=== PATIENT | female | born 1965 | race American Indian/Alaskan Native ===

== ENCOUNTER 2018-07-30 12:01 | Observation (INO) | payer MEDICAID, OTHER ==
[2018-07-30 12:15] VITALS: BMI 24.3
--- NOTE | 2018-07-30 13:15 | C.PDOC ---
History Of Present Illness 53 year old female presents to ED with complaint of new onset right-sided and left facial paresthesia for the past 3 days. Patient states that she felt sudden onset numbness to the right upper extremity and right lower extremity and involuntary "twisting" of the hands and feet. Patient now has residual right fingertip paresthesia. Patient also complaint of associated left facial numbness" heaviness" and swelling to the left upper face. The swelling is now resolved, but patient still has an odd feeling to her left face. Patient had no prior history of TIA, DM, and CAD. Patient denies weakness, SOB, and difficulty swallowing. NEW ONSET R SIDED AND L FACIAL PARESTHESIA X 3 DAYS. PS FELT SUDDENT ONSET NUMBNESS RUE/RLE, INVOLUNTARY "TWISTING" OF HANDS AND FEET. NOW W RESIDUAL R FINGERTIP PARESTHESIA. NO WEAKNESS. +ASSOC L FACIAL NUMBNESS "HEAVINESS", +SWELLING L UPPER FACE. SWELLING NOW RESOLVED STILL W "ODD FEELING" L FACE. NO PRIOR HO TIA, DM, CAD. EXAM NONTOXIC NARD CV RRR EXT AROM WO DIFF ATRAUM NEURO SEE NIH REMAINDER NEG Time Seen by Provider: 07/30/18 12:36 Chief Complaint (Nursing): Weakness/Neurological Deficit History Per: Patient History/Exam Limitations: no limitations Onset/Duration Of Symptoms: Days (3), Sudden Onset Current Symptoms Are (Timing): Still Present Past Medical History Reviewed: Historical Data, Nursing Documentation, Vital Signs Vital Signs: Last Vital Signs Temp 99.4 F 07/30/18 12:15 Pulse 73 07/30/18 12:15 Resp 17 07/30/18 12:15 BP 146/89 07/30/18 12:15 Pulse Ox 100 07/30/18 12:15 - Medical History PMH: Asthma Denies: CAD, Diabetes, TIA Surgical History: No Surg Hx Family History: States: Unknown Family Hx - Social History Hx Tobacco Use: No Hx Alcohol Use: Yes Hx Substance Use: No - Immunization History Hx Tetanus Toxoid Vaccination: No Hx Influenza Vaccination: Yes (2018) Hx Pneumococcal Vaccination: No Review Of Systems Constitutional: Negative for: Weakness ENT: Positive for: Other (swelling to the left upper facial area) Respiratory: Negative for: Shortness of Breath, Other (difficulty swallowing) Neurological: Positive for: Numbness (right fingertip, left facial area ). Negative for: Weakness Physical Exam - Physical Exam Appears: Non-toxic, No Acute Distress Skin: Normal Color, Warm, Dry Head: Atraumatic, Normacephalic Neck: Normal ROM, Supple Chest: Symmetrical, No Deformity Cardiovascular: Rhythm Regular, No Murmur Respiratory: No Accessory Muscle Use, No Rales, No Rhonchi, No Wheezing, Other (NARD) Extremity: Capillary Refill (<2 seconds), Other (AROM with out difficulty) Extremity: Bilateral: Atraumatic Neurological/Psych: Oriented x3, Normal Speech, Normal Cognition, No Normal Sensation (mild to moderate loss of sensation) ED Course And Treatment - Laboratory Results Result Diagrams: 07/30/18 13:21 07/30/18 13:21 O2 Sat by Pulse Oximetry: 100 (in RA) - Other Rad CXR X-Ray: Interpreted by Me, Viewed By Me Interpretation: IMPRESSION: No active disease. - CT Scan/US Head CT Other Rad Studies (CT/US): Interpreted By Me, Read By Radiologist CT/US Interpretation: IMPRESSION: No acute intracranial pathology identified. Progress Note: Head CT, CXR, and EKG ordered for patient. Labs ordered with CMP, CBC, and troponin. Patient given IV fluids. Reevaluation Time: 14:52 Reassessment Condition: Unchanged (NO NEW NEURO SX EXAM UNCH INITIAL.) - Physician Consult Information Time Consulting Physician Contacted: 14:53 Physician Contacted: Bonnie Winter Outcome Of Conversation: MED CALL WILL ADMIT NIHSS Stroke Scale - Date/Time Evaluation Performed Date Performed: 07/30/18 Time Performed: 13:15 When Was NIHSS Performed: Baseline - How Severe is the Stroke Level of Consciousness: 0=Alert LOC to Questions: 0=Both comments correct LOC to commands: 0=Obeys both correctly Best Gaze: 0=Normal Visual: 0=No visual loss Facial: 0=Normal Motor Arm - Left: 0=No drift Motor Arm - Right: 0=No drift Motor Leg - Left: 0=No drift Motor Leg - Right: 0=No drift Limb Ataxia: 0=Absent Sensory: 1=Mild to moderate loss Best Language: 0=No aphasia Dysarthia: 0=Normal articulation Extinction & Inattention (Neglect): 0=Normal, no object Score: 1 rTPA Inclusion/Exclusion - Refusal of Treatment Patient Refused Treatment: No - Inclusion Criteria for Altepase All of the below criteria for inclusion were reviewed: Yes Patient is 18 years or Older: Yes The Clinical Diagnosis of Ischemic Stroke That is Causing a Potentially Disabling Neurological Deficit: Yes Time of Onset is Well Established to be Less Than 270 Minute Before Treatment Would Begin: Yes Risk/Benefit Discussed With Patient/Family Member Present: Yes - Exclusion Criteria for Altepase Current Intracranial Hemorrhage: No Subarachnoid hemorrhage: No Active Internal Bleeding: No Recent (within 3 months) Intracranial or Intraspinal Surgery: No Presence of intracranial conditions that may increase the risk of bleeding: Not Applicable Bleeding Diathesis Including but not limited to: Not Applicable Current Severe Uncontrolled Hypertension: No - Warning to TPA With Conditions Following Conditions Weighed Against Anticipated Benefit: No Disposition Counseled Patient/Family Regarding: Studies Performed, Diagnosis - Disposition Disposition: HOSPITALIZED Disposition Time: 14:53 Condition: STABLE Forms: [facility] (Tristanian) - POA Present On Arrival: None - Clinical Impression Clinical Impression: TIA (transient ischemic attack) - Scribe Statement The provider has reviewed the documentation as recorded by the Scribe (Kerrie Montelongo) All medical record entries made by the Scribe were at my direction and personally dictated by me. I have reviewed the chart and agree that the record accurately reflects my personal performance of the history, physical exam, medical decision making, and the department course for this patient. I have also personally directed, reviewed, and agree with the discharge instructions and disposition.
[2018-07-30 13:37] LABS: BASO % 0.7 % (0.0-2.0); EOS # 0.1 K/uL (0.0-0.7); EOS % 1.4 % (0.0-4.0); HEMOGLOBIN 14.6 g/dL (11.0-16.0); LYMPH # 2.6 K/uL (1.0-4.3); LYMPH % 41.5 % (20.0-40.0); MEAN CELL VOLUME 95.5 fL (81.0-99.0); MEAN CORPUSCULAR HEMOGLOBIN 32.9 pg (27.0-31.0); MEAN CORPUSCULAR HGB CONC 34.4 g/dL (33.0-37.0); MEAN PLATELET VOLUME 10.3 fL (7.2-11.7); MONO # 0.8 K/uL (0.0-0.8); MONO % 11.9 % (0.0-10.0); NEUT # 2.8 K/uL (1.8-7.0); NEUT % 44.5 % (50.0-75.0); NRBC % 0.2 % (0.0-2.0); RBC 4.43 Mil/uL (3.80-5.20); RED CELL DISTRIBUTION WIDTH 13.9 % (11.5-14.5); WHITE BLOOD COUNT 6.3 K/uL (4.8-10.8)
[2018-07-30 13:40] LABS: PROTHROMBIN TIME 10.7 SECONDS (9.7-12.2)
--- NOTE | 2018-07-30 13:50 | CT ---
Date of service: 07/30/2018 PROCEDURE: CT HEAD WITHOUT CONTRAST. HISTORY: R SIDED PARESTHESIA, L FACIAL NUMB COMPARISON: CT without IV contrast performed 09/16/11 TECHNIQUE: Axial computed tomography images were obtained through the head/brain without intravenous contrast. Radiation dose: Total exam DLP = 984.96 mGy-cm. This CT exam was performed using one or more of the following dose reduction techniques: Automated exposure control, adjustment of the mA and/or kV according to patient size, and/or use of iterative reconstruction technique. FINDINGS: Streak artifact obscures the skull base. HEMORRHAGE: No intracranial hemorrhage. BRAIN: No mass effect or edema. The haider-white matter differentiation appears intact. Please note that MRI with diffusion imaging is more sensitive in the detection of acute ischemic event. VENTRICLES: No hydrocephalus. CALVARIUM: Unremarkable. PARANASAL SINUSES: Unremarkable as visualized. No significant inflammatory changes. MASTOID AIR CELLS: Unremarkable as visualized. No inflammatory changes. OTHER FINDINGS: None. IMPRESSION: No acute intracranial pathology identified.
[2018-07-30 13:54] LABS: ALB/GLOB RATIO 1.7 (1.0-2.1); ALBUMIN 4.6 g/dL (3.5-5.0); BLOOD UREA NITROGEN 11 mg/dL (7-17); CALCIUM 9.7 mg/dl (8.6-10.4); GFR NON-AFRICAN AMERICAN 58
[2018-07-30 13:55] LABS: ALT/SGPT 20 U/L (9-52); AST/SGOT 43 U/L (14-36)
[2018-07-30 14:04] LABS: HDL CHOLESTEROL 115 mg/dL (30-70)
[2018-07-30 14:05] LABS: LDL CHOLESTEROL 70 mg/dL (0-129)
--- NOTE | 2018-07-30 14:25 | RAD ---
Date of service: 07/30/2018 HISTORY: PARESTHESIA COMPARISON: No prior. TECHNIQUE: 1 view obtained. FINDINGS: LUNGS: No active pulmonary disease. PLEURA: No significant pleural effusion identified, no pneumothorax apparent. CARDIOVASCULAR: No aortic atherosclerotic calcification present. Normal cardiac size. No pulmonary vascular congestion. OSSEOUS STRUCTURES: No significant abnormalities. VISUALIZED UPPER ABDOMEN: Normal. OTHER FINDINGS: None. IMPRESSION: No active disease.
--- NOTE | 2018-07-30 17:54 | CP.PCM.CON ---
History of Present Illness - History of Present Illness History of Present Illness: Neurology Consultation Note: Consult requested by Dr. Winter The patient is a 53-year-old woman with a past medical history of asthma who presented to the ED today after several events that started about 3 days ago. She was on vacation with her when she noticed that her right side was "twisting" and she then developed speech difficulty and lost consciousness. While unconscious, her noted right side contractions. When she regained consciousness, she was confused and staring around. She had another similar episode 3 days later. She continues to feel that her right side is different and has a sensation of dizziness. CT scan of the head did not show any acute findings. The patient had a brother who of brain tumors and has a family history of seizures as well. She has never had a seizure before. Review of Systems - Constitutional Constitutional: As Per HPI - EENT Eyes: absent: As Per HPI, Blind Spots, Blurred Vision, Change in Vision, Decreased Night Vision, Diplopia, Discharge, Dry Eye, Exophthalmos, Floaters, Irritation, Itchy Eyes, Loss of Peripheral Vision, Pain, Photophobia, Requires Corrective Lenses, Sees Flashes, Spots in Vision, Tunnel Vision, Other Visual Disturbances, Loss of Vision, Other Ears: absent: As Per HPI, Decreased Hearing, Ear Discharge, Ear Pain, Tinnitus, Abnormal Hearing, Disequilibrium, Dizziness, Other Nose/Mouth/Throat: absent: As Per HPI, Epistaxis, Nasal Congestion, Nasal Discharge, Nasal Obstruction, Nasal Trauma, Nose Pain, Post Nasal Drip, Sinus Pain, Sinus Pressure, Bleeding Gums, Change in Voice, Dental Pain, Dry Mouth, Dysphagia, Halitosis, Hoarsness, Lip Swelling, Mouth Lesions, Mouth Pain, Odynophagia, Sore Throat, Throat Swelling, Tongue Swelling, Facial Pain, Neck Pain, Neck Mass, Other - Cardiovascular Cardiovascular: absent: As Per HPI, Acrocyanosis, Chest Pain, Chest Pain at Rest, Chest Pain with Activity, Claudication, Diaphoresis, Dyspnea, Dyspnea on Exertion, Edema, Irregular Heart Rhythm, Pain Radiating to Arm/Neck/Jaw, Leg Edema, Leg Ulcers, Lightheadedness, Orthopnea, Palpitations, Paroxysmal Nocturnal Dyspnea, Pedal Edema, Radiating Pain, Rapid Heart Rate, Slow Heart Rate, Syncope, Other - Respiratory Respiratory: As Per HPI - Gastrointestinal Gastrointestinal: absent: As Per HPI, Abdominal Pain, Belching, Bloating, Change in Bowel Habits, Change in Stool Character, Coffee Ground Emesis, Constipation, Cramping, Diarrhea, Dyspepsia, Dysphagia, Early Satiety, Excessive Flatus, Fecal Incontinence, Heartburn, Hematemesis, Hematochezia, Loose Stools, Melena, Nausea, Odynophagia, Temesmus, Vomiting, Other - Genitourinary Genitourinary: absent: As Per HPI, Change in Urinary Stream, Difficulty Urinating, Dysuria, Flank Pain, Hematuria, Pyuria, Nocturia, Urinary Incontinence, Urinary Frequency, Urinary Hesitance, Urinary Urgency, Voiding Freq/Small Amts, Freq UTI, Hx Renal/Bladder Calculi, Hx /Renal Surgery, Bladder Distension, Other - Musculoskeletal Musculoskeletal: absent: As Per HPI, Abnormal Gait, Arthralgias, Atrophy, Back Pain, Deformity, Joint Swelling, Limited Range of Motion, Loss of Height, Muscle Cramps, Muscle Weakness, Myalgias, Neck Pain, Numbness, Radiating Pain into Limb, Stiffness, Tingling, Other - Integumentary Integumentary: absent: As Per HPI, Acne, Alopecia, Bleeding Lesions, Change in Hair, Change in Nails, Change in Pigmentation, Changing Lesions, Dry Skin, Erythema, Furuncle, Hirsutism, Lesions, New Lesions, Non-Healing Lesions, Photosensitivity, Pruritus, Rash, Skin Pain, Skin Ulcer, Sores, Striae, Swelling, Unusual Bruising, Wounds, Jaundice, Other - Neurological Neurological: As Per HPI - Psychiatric Psychiatric: absent: As Per HPI, Abnormal Sleep Pattern, Anhedonia, Anxiety, Auditory Hallucinations, Behavioral Changes, Change in Appetite, Change in Libido, Confusion, Depression, Difficulty Concentrating, Hallucinations, Homicidal Ideation, Hopelessness, Irritability, Memory Loss, Mood Swings, Panic Attacks, Paranoia, Suicidal Ideation, Visual Hallucinations, Tactile Hallucinations, Other - Endocrine Endocrine: absent: As Per HPI, Change in Body Appearance, Change in Libido, Cold Intolorance, Deepening of Voice, Excessive Sweating, Fatigue, Flushing, Heat Intolorance, Increase in Ring/Shoe/Hat Size, Palpitations, Polydipsia, Polyphagia, Polyuria, Other - Hematologic/Lymphatic Hematologic: absent: As Per HPI, Easy Bleeding, Easy Bruising, Lymphadenopathy, Other Past Patient History - Past Social History Smoking Status: Light Smoker < 10 Cigarettes Daily - PULMONARY Hx Asthma: Yes - NEUROLOGICAL Hx Transient Ischemic Attacks (TIA): No - PSYCHIATRIC Hx Substance Use: No - SURGICAL HISTORY Hx Surgeries: Yes Other/Comment: RIGHT OVARIAN CYST REMOVAL Meds Allergies/Adverse Reactions: Allergies Allergy/AdvReac Type Severity Reaction Status Date / Time No Known Allergies Allergy Verified 07/30/18 12:10 - Medications Medications: Current Medications Aspirin (Aspirin) 325 mg PO DAILY RHIANNON Sodium Chloride (Sodium Chloride 0.9%) 1,000 mls @ 100 mls/hr IV .Q10H RHIANNON Rosuvastatin Calcium (Crestor) 10 mg PO HS RHIANNON Physical Exam - Constitutional Appears: Well - Head Exam Head Exam: ATRAUMATIC, NORMAL INSPECTION, NORMOCEPHALIC - Eye Exam Eye Exam: EOMI, Normal appearance, PERRL Pupil Exam: NORMAL ACCOMODATION, PERRL - ENT Exam ENT Exam: Mucous Membranes Moist, Normal Exam - Neck Exam Neck exam: Positive for: Normal Inspection - Respiratory Exam Respiratory Exam: Clear to Auscultation Bilateral, NORMAL BREATHING PATTERN - Cardiovascular Exam Cardiovascular Exam: REGULAR RHYTHM, +S1, +S2 - GI/Abdominal Exam GI & Abdominal Exam: Normal Bowel Sounds, Soft. absent: Tenderness - Extremities Exam Extremities exam: Positive for: normal inspection - Back Exam Back exam: NORMAL INSPECTION - Neurological Exam Neurological exam: Alert, CN II-XII Intact, Normal Gait, Oriented x3, Reflexes Normal Additional comments: Decreased sensation of right arm and leg compared with left. There is also decreased coordination and fine motor movements on the right side. - Psychiatric Exam Psychiatric exam: Normal Affect, Normal Mood - Skin Skin Exam: Dry, Intact, Normal Color, Warm Results - Vital Signs Recent Vital Signs: Last Vital Signs Temp 99.4 F 07/30/18 12:15 Pulse 71 07/30/18 15:55 Resp 16 07/30/18 15:55 BP 149/73 07/30/18 15:55 Pulse Ox 97 07/30/18 15:55 - Labs Result Diagrams: 07/30/18 13:21 07/30/18 13:21 Labs: Laboratory Results - last 24 hr 07/30/18 07/30/18 07/30/18 12:18 13:21 13:21 WBC 6.3 RBC 4.43 Hgb 14.6 Hct 42.4 MCV 95.5 MCH 32.9 H MCHC 34.4 RDW 13.9 Plt Count 216 MPV 10.3 Neut % (Auto) 44.5 L Lymph % (Auto) 41.5 H [place] % (Auto) 11.9 H Eos % (Auto) 1.4 Baso % (Auto) 0.7 Neut # (Auto) 2.8 Lymph # (Auto) 2.6 [place] # (Auto) 0.8 Eos # (Auto) 0.1 Baso # (Auto) 0.0 PT 10.7 INR 1.0 APTT 29 Sodium Potassium Chloride Carbon Dioxide Anion Gap BUN Creatinine Est GFR ( Amer) Est GFR (Non-Af Amer) POC Glucose (mg/dL) 112 H Random Glucose Hemoglobin A1c Calcium Total Bilirubin AST ALT Alkaline Phosphatase Troponin I Total Protein Albumin Globulin Albumin/Globulin Ratio Triglycerides Cholesterol LDL Cholesterol Direct HDL Cholesterol 07/30/18 07/30/18 13:21 13:21 WBC RBC Hgb Hct MCV MCH MCHC RDW Plt Count MPV Neut % (Auto) Lymph % (Auto) [place] % (Auto) Eos % (Auto) Baso % (Auto) Neut # (Auto) Lymph # (Auto) [place] # (Auto) Eos # (Auto) Baso # (Auto) PT INR APTT Sodium 136 Potassium 3.6 Chloride 99 Carbon Dioxide 26 Anion Gap 14 BUN 11 Creatinine 1.0 Est GFR ( Amer) > 60 Est GFR (Non-Af Amer) 58 POC Glucose (mg/dL) Random Glucose 96 Hemoglobin A1c 5.3 Calcium 9.7 Total Bilirubin 1.0 AST 43 H ALT 20 Alkaline Phosphatase 75 Troponin I < 0.0120 Total Protein 7.4 Albumin 4.6 Globulin 2.7 Albumin/Globulin Ratio 1.7 Triglycerides 92 Cholesterol 186 LDL Cholesterol Direct 70 HDL Cholesterol 115 H Assessment & Plan (1) Seizure Assessment and Plan: The description of the events is most consistent with focal onset seizures that are secondarily generalized. I recommend the followin. MRI brain with and without contrast 2. EEG awake and drowsy for 1 hour 3. Echocardiogram 4. Start Keppra 500 mg BID 5. Check HbA1c, Lipid panel, B12, folate, TSH T3/T4, vitamin D levels 6. PT/OT eval and treatment if needed Thank you for this consultation. Status: Acute
[2018-07-30] MEDS: Sodium Chloride 0.9% 1,000 ML IV SCH ×2 (19:01→23:29)
--- NOTE | 2018-07-30 19:12 | CP.PCM.HP ---
Past Patient History - Past Social History Smoking Status: Light Smoker < 10 Cigarettes Daily - PULMONARY Hx Asthma: Yes - NEUROLOGICAL Hx Transient Ischemic Attacks (TIA): No - PSYCHIATRIC Hx Substance Use: No - SURGICAL HISTORY Hx Surgeries: Yes Other/Comment: RIGHT OVARIAN CYST REMOVAL Meds Allergies/Adverse Reactions: Allergies Allergy/AdvReac Type Severity Reaction Status Date / Time No Known Allergies Allergy Verified 07/30/18 12:10 Physical Exam - Constitutional Appears: Well - Head Exam Head Exam: ATRAUMATIC, NORMAL INSPECTION, NORMOCEPHALIC - Eye Exam Eye Exam: EOMI, Normal appearance, PERRL Pupil Exam: NORMAL ACCOMODATION, PERRL - ENT Exam ENT Exam: Mucous Membranes Moist, Normal Exam - Neck Exam Neck exam: Positive for: Normal Inspection - Respiratory Exam Respiratory Exam: Decreased Breath Sounds - Cardiovascular Exam Cardiovascular Exam: REGULAR RHYTHM, +S1, +S2 - GI/Abdominal Exam GI & Abdominal Exam: Diminished Bowel Sounds, Soft - Rectal Exam Rectal Exam: Deferred - Neurological Exam Neurological exam: Oriented x3 Results - Vital Signs Recent Vital Signs: Last Vital Signs Temp 99.4 F 07/30/18 12:15 Pulse 71 07/30/18 15:55 Resp 16 07/30/18 15:55 BP 149/73 07/30/18 15:55 Pulse Ox 97 07/30/18 15:55 - Labs Result Diagrams: 07/30/18 13:21 07/30/18 13:21 Labs: Laboratory Results - last 24 hr 07/30/18 07/30/18 07/30/18 12:18 13:21 13:21 WBC 6.3 RBC 4.43 Hgb 14.6 Hct 42.4 MCV 95.5 MCH 32.9 H MCHC 34.4 RDW 13.9 Plt Count 216 MPV 10.3 Neut % (Auto) 44.5 L Lymph % (Auto) 41.5 H [place] % (Auto) 11.9 H Eos % (Auto) 1.4 Baso % (Auto) 0.7 Neut # (Auto) 2.8 Lymph # (Auto) 2.6 [place] # (Auto) 0.8 Eos # (Auto) 0.1 Baso # (Auto) 0.0 PT 10.7 INR 1.0 APTT 29 Sodium Potassium Chloride Carbon Dioxide Anion Gap BUN Creatinine Est GFR ( Amer) Est GFR (Non-Af Amer) POC Glucose (mg/dL) 112 H Random Glucose Hemoglobin A1c Calcium Total Bilirubin AST ALT Alkaline Phosphatase Troponin I Total Protein Albumin Globulin Albumin/Globulin Ratio Triglycerides Cholesterol LDL Cholesterol Direct HDL Cholesterol 07/30/18 07/30/18 13:21 13:21 WBC RBC Hgb Hct MCV MCH MCHC RDW Plt Count MPV Neut % (Auto) Lymph % (Auto) [place] % (Auto) Eos % (Auto) Baso % (Auto) Neut # (Auto) Lymph # (Auto) [place] # (Auto) Eos # (Auto) Baso # (Auto) PT INR APTT Sodium 136 Potassium 3.6 Chloride 99 Carbon Dioxide 26 Anion Gap 14 BUN 11 Creatinine 1.0 Est GFR ( Amer) > 60 Est GFR (Non-Af Amer) 58 POC Glucose (mg/dL) Random Glucose 96 Hemoglobin A1c 5.3 Calcium 9.7 Total Bilirubin 1.0 AST 43 H ALT 20 Alkaline Phosphatase 75 Troponin I < 0.0120 Total Protein 7.4 Albumin 4.6 Globulin 2.7 Albumin/Globulin Ratio 1.7 Triglycerides 92 Cholesterol 186 LDL Cholesterol Direct 70 HDL Cholesterol 115 H
[2018-07-30 20:56] LABS: BARBITURATES, UR NEGATIVE (NEGATIVE); BENZODIAZEPINES, UR NEGATIVE (NEGATIVE); OPIATES, UR NEGATIVE (NEGATIVE); PHENCYCLIDINE, UR NEGATIVE (NEGATIVE)
[2018-07-30 23:45] LABS: CK-MB 0.48 ng/mL (0.0-3.38)
[2018-07-31 05:00] LABS: HDL CHOLESTEROL 82 mg/dL (30-70)
[2018-07-31 05:11] LABS: LDL CHOLESTEROL 63 mg/dL (0-129)
[2018-07-31] MEDS: Sodium Chloride 0.9% 1,000 ML IV SCH ×3 (05:23→21:21)
[2018-07-31 06:06] LABS: FOLATE 8.1 ng/mL
--- NOTE | 2018-07-31 07:54 | CON ---
DATE: 07/30/2018 REASON FOR CONSULTATION: Right-sided weakness and numbness as well as dizziness and weakness. HISTORY OF PRESENT ILLNESS: The patient is a 53-year-old female who has no significant past medical history who experienced slurred speech on Monday while she was on a vacation, right-sided arm and leg weakness with numbness as well as loss of her speech according to her who noticed that. The patient did not seek any medical attention. 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 The patient denies any recent head trauma or neck injury and is unaware of any history of stroke in the past. The patient denies any saliva drooling from her mouth. She does report left facial tightness. The patient did recover most of the power in the right upper and lower extremities with residual weakness as well as numbness. SOCIAL HISTORY: The patient is a smoker. Occasional drinker. She is . 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 MEDICATIONS: Aspirin 325 mg once a day, Crestor 10 mg once a day, Keppra 500 mg twice a day, normal saline at 100 mL/hour. REVIEW OF SYSTEMS: No nausea or vomiting. No fever or chills. PHYSICAL EXAMINATION: GENERAL: The patient is a middle-aged female who does not appear to be in any distress. VITAL SIGNS: Blood pressure 146/82, heart rate 60, temperature 98.5, respirations 20. HEENT: Normocephalic. CHEST: Clear. HEART: S1 and S2, regular. EXTREMITIES: No edema. NEUROLOGIC: Reveals weakness of the right handgrip. LABORATORY DATA: SMA-7 is entirely within normal limit. One set of troponin is negative. PT, PTT, INR are within normal limit. Today's hemoglobin, hematocrit, white count, and platelet count are within normal limit. Head CT scan without contrast, no acute intracranial pathology. EKG revealed sinus rhythm with sinus arrhythmia and short MA interval. ASSESSMENT: 1. Recurrent transient ischemic attack. 2. Rule out seizure activity. RECOMMENDATIONS: Continue aspirin at 325 mg once a day, Crestor 10 mg once a day, Keppra 500 mg twice a day. Obtain urine for drug screen, carotid Doppler, and an echocardiogram. Juan Saul MD
[2018-07-31] MEDS ORDERED: Pneumococcal 23-Valent Vaccine IM ONE (10:00)
[2018-07-31] MEDS ORDERED: Gadodiamide 287 mg/ml 20 ml IV ONE (12:21)
--- NOTE | 2018-07-31 13:38 | MRI ---
Date of service: 07/31/2018 PROCEDURE: MRI BRAIN WITH AND WITHOUT CONTRAST HISTORY: Seizure COMPARISON: Comparison made with CT scan the brain 07/30/2018. TECHNIQUE: Multiplanar, multisequence MR images of the brain were obtained with and without intravenous contrast enhancement. 12 cc of Omniscan contrast material injected for this examination. FINDINGS: HEMORRHAGE: None DWI: No evidence of an acute or early subacute infarction seen on diffusion imaging. BRAIN PARENCHYMA: There are no focal areas of abnormal signal.. No evidence to suggest mesial temporal sclerosis. No mass, mass effect or edema. No atrophy or chronic microvascular ischemic changes. ENHANCEMENT: No abnormal focal areas no focal areas of abnormal signal. No evidence of unusual meningeal enhancement. VENTRICLES: No obstructive hydrocephalus. CRANIUM: Unremarkable. ORBITS: Grossly unremarkable. PARANASAL SINUSES/MASTOIDS: Minimal mucosal thickening left chamber sphenoid sinus VASCULAR SYSTEM: Visualized major vascular flow voids at skull base patent. OTHER FINDINGS: None . IMPRESSION: No evidence of acute intracranial hemorrhage or infarction. No focal areas of abnormal signal. No evidence to suggest mesial temporal sclerosis. There are no enhancing lesions. No evidence of unusual meningeal enhancement.
[2018-07-31 14:32] LABS: CK-MB 0.39 ng/mL (0.0-3.38)
--- NOTE | 2018-07-31 16:21 | CP.PCM.PN ---
Subjective - Date & Time of Evaluation Date of Evaluation: 07/31/18 Time of Evaluation: 16:23 - Subjective Subjective: Neuro Follow-Up: Mrs. Emerson Dobbins was evaluated this afternoon with at bedside. She complains of feeling unsteady and unbalanced, especially while ambulating or with sudden movements. 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 Otherwise, she denies h/a, visual changes to the right eye, difficulty speaking, chest pain, palpitations, sob, cough, abd pain, n/v/d, fever/chills, rashes. Objective - Vital Signs/Intake and Output Vital Signs (last 24 hours): Temp Pulse Resp BP Pulse Ox 98.1 F 69 20 129/85 98 07/31/18 07:00 07/31/18 12:37 07/31/18 07:00 07/31/18 07:00 07/31/18 07:00 Intake and Output: 07/31/18 07/31/18 06:59 18:59 Intake Total 1500 Balance 1500 - Medications Medications: Current Medications Aspirin (Aspirin) 325 mg PO DAILY [facility] Last Admin: 07/31/18 09:25 Dose: 325 mg Sodium Chloride (Sodium Chloride 0.9%) 1,000 mls @ 100 mls/hr IV .Q10H [facility] Last Admin: 07/31/18 09:15 Dose: Not Given Levetiracetam (Keppra) 500 mg PO BID [facility] Last Admin: 07/31/18 09:25 Dose: 500 mg Rosuvastatin Calcium (Crestor) 10 mg PO HS [facility] Last Admin: 07/30/18 22:46 Dose: 10 mg - Labs Labs: 07/30/18 13:21 07/30/18 13:21 PT 10.7 SECONDS (9.7-12.2) 07/30/18 13:21 INR 1.0 07/30/18 13:21 APTT 29 SECONDS (21-34) 07/30/18 13:21 - Constitutional Appears: Well, Non-toxic, No Acute Distress - Head Exam Head Exam: ATRAUMATIC, NORMAL INSPECTION, NORMOCEPHALIC - Eye Exam Eye Exam: EOMI, Normal appearance Pupil Exam: NORMAL ACCOMODATION, PERRL - ENT Exam ENT Exam: Mucous Membranes Moist, Normal Exam - Neck Exam Neck Exam: Full ROM, Normal Inspection - Respiratory Exam Respiratory Exam: NORMAL BREATHING PATTERN - Extremities Exam Extremities Exam: Full ROM, Normal Inspection. absent: Calf Tenderness, Pedal Edema - Back Exam Back Exam: Full ROM - Neurological Exam Neurological Exam: Alert, Awake, CN II-XII Intact, Oriented x3, Reflexes Normal Neuro motor strength exam: Left Upper Extremity: 5 (distal 5/5), Right Upper E xtremity: 5 (distal 5/5), Left Lower Extremity: 5 (distal 5/5), Right Lower Extremity: 5 (distal 5/5) Additional comments: Speech clear, no dysarthria. No diplopia on eye exam though pt states left eye is blurry. FROM to all extremities with no focal weakness/deficits. No dysmetria or ataxia. No sensory deficits noted to face and extremities b/l. No tremors or abnormal movements. - Psychiatric Exam Psychiatric exam: Normal Affect, Normal Mood - Skin Skin Exam: Normal Color Assessment and Plan (1) Seizure Assessment & Plan: Imaging reviewed: -MRI Brain (07/31/18): No evidence of acute intracranial hemorrhage or infarction. No focal areas of abnormal signal. No evidence to suggest mesial temporal sclerosis. There are no enhancing lesions. No evidence of unusual meningeal enhancement. -CT Head (07/30/18): No acute intracranial pathology identified. -CTA Head and Neck ordered to r/o VBI as pt c/o dizziness and lightheadedness ---will f/u with results. -Continue Keppra 500 mg PO BID for suspected focal seizure. -Pending EEG report--will f/u. -Pending ECHO report--will f/u. -Continue PT for balance and mobility. -Notify neuro team of any acute changes in pt's condition. Betty Rowland, DNP, [employer] d/w Dr. Ha Status: Acute
[2018-07-31] MEDS ORDERED: Iodixanol 320 MG/ML 100 ML BOTTLE IV ONE (16:36)
--- NOTE | 2018-07-31 17:32 | PN ---
DATE: 07/31/2018 SUBJECTIVE: The patient denies any dizziness, speech difficulty or arm or leg weakness. PHYSICAL EXAMINATION: VITAL SIGNS: Blood pressure 129/85, heart rate 69, temperature 98.1, and respirations 20. HEENT: Normocephalic. CHEST: Clear. HEART: S1 and S2. Regular. EXTREMITIES: No edema. LABORATORY DATA: Urine drug screen is positive for cannabinoids. Three sets of troponins are negative. Brain MRI was performed and the report is still pending. ASSESSMENT: 1. Recurring right-sided numbness with speech difficulty, rule out recurrent transient ischemic attack. 2. Rule out seizure activity. 3. Cannabinoid abuse. RECOMMENDATIONS: Continue aspirin 325 mg once a day, Crestor 10 mg once a day, Keppra 500 mg twice a day. I will review the echocardiographic study performed today and follow up brain MRI. Juan Saul MD
--- NOTE | 2018-07-31 18:35 | CT ---
Date of service: 07/31/2018 PROCEDURE: CT Angiography of the neck and brain with contrast HISTORY: Rule out vertebral basilar insufficiency in a patient with history of dizziness; unsteady COMPARISON: Comparison made with MRI and CT scan brain dated 07/31/2018 and 07/30/2018 respectively. TECHNIQUE: Contiguous axial images of the neck were obtained from the level of the skull-base to the superior mediastinum in the arteriographic phase of enhancement. Coronal and sagittal reformats or also generated. IV contrast dose: 100 cc Visipaque 320 Radiation dose: Total exam DLP = 494.66 mGy-cm. This CT exam was performed using one or more of the following dose reduction techniques: Automated exposure control, adjustment of the mA and/or kV according to patient size, and/or use of iterative reconstruction technique. FINDINGS: The aortic arch is widely patent with no significant aortic atherosclerotic calcification or mural plaque. The origins of the great vessels are also widely patent. Common carotid arteries, carotid bifurcations and internal carotid arteries including the petrous cavernous and supraclinoid segments patent. The vertebral arteries are also patent throughout right-sided which is slightly larger in caliber/more dominant than the left side. Basilar artery is patent. The visualized major branches of the [id number] are patent. Distal branches of the anterior middle and posterior cerebral arteries patent and relatively symmetric. No evidence of large aneurysm nor vascular malformation. OTHER FINDINGS: Lung apices are clear IMPRESSION: Unremarkable CT angiogram of the neck and brain.
--- NOTE | 2018-07-31 18:52 | CP.PCM.PN ---
Subjective - Date & Time of Evaluation Date of Evaluation: 07/31/18 Time of Evaluation: 10:10 - Subjective Subjective: patient examined today no nausea no vomiting no dizziness no diarrhea no fever no sob Objective - Vital Signs/Intake and Output Vital Signs (last 24 hours): Temp Pulse Resp BP Pulse Ox 97.7 F 65 20 131/72 97 07/31/18 16:00 07/31/18 16:00 07/31/18 16:00 07/31/18 16:00 07/31/18 16:00 Intake and Output: 07/31/18 07/31/18 06:59 18:59 Intake Total 1500 Balance 1500 - Medications Medications: Current Medications Aspirin (Aspirin) 325 mg PO DAILY [facility] Last Admin: 07/31/18 09:25 Dose: 325 mg Sodium Chloride (Sodium Chloride 0.9%) 1,000 mls @ 100 mls/hr IV .Q10H [facility] Last Admin: 07/31/18 09:15 Dose: Not Given Levetiracetam (Keppra) 500 mg PO BID [facility] Last Admin: 07/31/18 18:24 Dose: 500 mg Rosuvastatin Calcium (Crestor) 10 mg PO HS [facility] Last Admin: 07/30/18 22:46 Dose: 10 mg - Labs Labs: 07/30/18 13:21 07/30/18 13:21 PT 10.7 SECONDS (9.7-12.2) 07/30/18 13:21 INR 1.0 07/30/18 13:21 APTT 29 SECONDS (21-34) 07/30/18 13:21 - Constitutional Appears: Well - Head Exam Head Exam: ATRAUMATIC, NORMAL INSPECTION, NORMOCEPHALIC - Eye Exam Eye Exam: EOMI, Normal appearance, PERRL Pupil Exam: NORMAL ACCOMODATION, PERRL - ENT Exam ENT Exam: Mucous Membranes Moist, Normal Exam - Neck Exam Neck Exam: Full ROM, Normal Inspection. absent: Lymphadenopathy - Respiratory Exam Respiratory Exam: Decreased Breath Sounds - Cardiovascular Exam Cardiovascular Exam: REGULAR RHYTHM, +S1, +S2 - GI/Abdominal Exam GI & Abdominal Exam: Soft, Diminished Bowel Sounds - Rectal Exam Rectal Exam: Deferred - Neurological Exam Neurological Exam: Oriented x3 Assessment and Plan - Assessment and Plan (Free Text) Plan: labs reviewed vitals reviewed medications reviewed aspirin crestor keppra sodium chloride
--- NOTE | 2018-07-31 20:33 | CARD ---
APPROVED REPORT Date of service: 07/30/2018 EKG Measurement Heart [id number] <Conclusion> Sinus rhythm with sinus arrhythmia with short UT Otherwise normal ECG
--- NOTE | 2018-07-31 20:54 | CARD ---
APPROVED REPORT Date of service: 07/31/2018 EXAM: Two-dimensional and M-mode echocardiogram with Doppler and color Doppler. Other Information Quality : GoodRhythm : INDICATION CVA/TIA 2D DIMENSIONS IVSd0.9 (0.7-1.1cm)LVDd4.2 (3.9-5.9cm) PWd0.8 (0.7-1.1cm)LA Nlopek36 (18-58mL) LVDs3.0 (2.5-4.0cm)FS (%) 29.8 % LVEF (%)60.0 (>50%)LVEF (Cheek's)65 % IVC0.00 cm M-Mode DIMENSIONS RVDd1.66 (2.1-3.2cm)Left Atrium (MM)3.46 (2.5-4.0cm) IVSd0.82 (0.7-1.1cm)Aortic Root2.72 (2.2-3.7cm) LVDd5.02 (4.0-5.6cm)Aortic Cusp Exc.1.87 (1.5-2.0cm) PWd0.79 (0.7-1.1cm)FS (%) 43 % LVDs2.88 (2.0-3.8cm)TAPSE19.46 cm LVEF (%)70 (>50%) Mitral Valve MV E Ilxkokyd93.8cm/sMV A Yqupqmjs35.8cm/sE/A ratio1.1 TDI Lateral E' Peak V10.42cm/sMedial E' Peak V8.93cm/sE/Lateral E'7.1 E/Medial E'8.3 Tricuspid Valve TR Peak Qvviyzia940gd/sTR Peak Gr.79bsMrLQCZ20fuXh <Conclusion> normal size la,lv & ra rv. normal lv wall motion,thickness,systolic & diastolic funciton with lvef of 60-65%. normal aortic,mitral,tv & pv. 1-2 + tr with normal pulmnonary systolic pressures of 31 mm of hg. no pericardial effusion. nomral size ivc & aortic root.
[2018-08-01] MEDS: Sodium Chloride 0.9% 1,000 ML IV SCH ×2 (05:53→07:37)
[2018-08-01 09:17] VITALS: BP 124/78; PULSE 72; RESP 18; TEMP 98.3; O2SAT 100
--- NOTE | 2018-08-01 12:51 | PCM.EEG ---
Electroencephalogram Report - Electroencephalogram Report Procedure Date: 07/31/18 Medication: Keppra,LISA Interpretation: Technical Information: This was a 16 -channel EEG, 1-channel EKG routine EEG performed using an Vertascale machine. Electrodes were applied using the 10/20 international placement system. Start; 10;22 End; 10;45 total 23 min Clinical Information: seizures. During resting wakefulness there was a symmetric posterior dominant rhythm at 8.5-9.5 Hz, 30-50 uV, which was reactive to eye opening and closing. Drowsiness (10;25) was associated with fragmentation of the posterior dominant rhythm and with slow roving eye movements. Light sleep was not recorded. Hyperventilation was not performed. Photic stimulation was performed and there were no changes on the record. Focal abnormality; none ECG was associated with a normal sinus rhythm. . Impression: This is a normal awake and drowsy electroencephalogram
--- NOTE | 2018-08-01 13:14 | CP.PCM.PN ---
Subjective - Date & Time of Evaluation Date of Evaluation: 08/01/18 Time of Evaluation: 13:14 - Subjective Subjective: Neuro Follow-Up: Mrs. Emerson Dobbins was evaluated this afternoon at bedside. Pt states that she is feeling much better today. Pt states that she was able to ambulate with PT today without feeling dizzy or unsteady. She also reports no heaviness to the left side of her face nor blurry vision to the left eye. She denies h/a, dizzi ness, visual changes, difficulty speaking, chest pain, palpitations, sob, cough, abd pain, n/v/d, fever/chills, rashes, paresthesias. Objective - Vital Signs/Intake and Output Vital Signs (last 24 hours): Temp Pulse Resp BP Pulse Ox 98.3 F 72 18 124/78 100 08/01/18 07:30 08/01/18 07:30 08/01/18 07:30 08/01/18 07:30 08/01/18 07:30 Intake and Output: 08/01/18 08/01/18 06:59 18:59 Intake Total 1950 Balance 1950 - Medications Medications: Current Medications Aspirin (Aspirin) 325 mg PO DAILY [facility] Last Admin: 08/01/18 09:17 Dose: 325 mg Sodium Chloride (Sodium Chloride 0.9%) 1,000 mls @ 100 mls/hr IV .Q10H [facility] Last Admin: 08/01/18 07:37 Dose: 100 mls/hr Levetiracetam (Keppra) 500 mg PO BID [facility] Last Admin: 08/01/18 09:19 Dose: 500 mg Rosuvastatin Calcium (Crestor) 10 mg PO HS [facility] Last Admin: 07/31/18 21:20 Dose: 10 mg - Labs Labs: 07/30/18 13:21 07/30/18 13:21 PT 10.7 SECONDS (9.7-12.2) 07/30/18 13:21 INR 1.0 07/30/18 13:21 APTT 29 SECONDS (21-34) 07/30/18 13:21 - Constitutional Appears: Well, Non-toxic, No Acute Distress - Head Exam Head Exam: ATRAUMATIC, NORMAL INSPECTION, NORMOCEPHALIC - Eye Exam Eye Exam: EOMI, Normal appearance, PERRL Pupil Exam: NORMAL ACCOMODATION, PERRL - ENT Exam ENT Exam: Mucous Membranes Moist - Neck Exam Neck Exam: Full ROM, Normal Inspection - Respiratory Exam Respiratory Exam: NORMAL BREATHING PATTERN - Extremities Exam Extremities Exam: Full ROM, Normal Inspection. absent: Calf Tenderness, Pedal Edema - Back Exam Back Exam: Full ROM - Neurological Exam Neurological Exam: Alert, Awake, CN II-XII Intact, Oriented x3, Reflexes Normal Neuro motor strength exam: Left Upper Extremity: 5 (distal 5/5), Right Upper Extremity: 5 (distal 5/5), Left Lower Extremity: 5 (distal 5/5), Right Lower Extremity: 5 (distal 5/5) Additional comments: Speech clear, no dysarthria. No diplopia on eye exam b/l. FROM to all extremities with no focal weakness/deficits. No dysmetria or ataxia. No sensory deficits noted to face and extremities b/l. No tremors or abnormal movements. - Psychiatric Exam Psychiatric exam: Normal Affect, Normal Mood - Skin Skin Exam: Normal Color Assessment and Plan (1) Seizure Assessment & Plan: Imaging reviewed: -CTA Head and Neck (07/31/18): Unremarkable CT angiogram of the neck and brain. -ECHO (07/31/18): EF 60-65% -EEG (07/31/18): This is a normal awake and drowsy electroencephalogram -MRI Brain (07/31/18): No evidence of acute intracranial hemorrhage or infarction. No focal areas of abnormal signal. No evidence to suggest mesial temporal sclerosis. There are no enhancing lesions. No evidence of unusual meningeal enhancement. -CT Head (07/30/18): No acute intracranial pathology identified. -No need to continue AE at this time. -May return to work and drive as normal. If pt has recurrent episode she is instructed to not drive until further evaluated. -Continue PT for balance and mobility--may be done as outpatient if recommended by PT. -Notify neuro team of any acute changes in pt's condition. Reconsult prn. -Pt to f/u with Dr. Weir in the office within 1 month. Betty Rowland, OMAR, WEIGHT ANALYST d/w Dr. Ha Status: Acute
[2018-08-01] MEDS ORDERED: Petrolatum Oint Foilpak (5 gm) TOP PRN (15:03)
--- NOTE | 2018-08-01 18:52 | CP.PCM.PN ---
Subjective - Date & Time of Evaluation Date of Evaluation: 08/01/18 Time of Evaluation: 11:00 - Subjective Subjective: alert, ambulatory, no acute distress. Objective - Vital Signs/Intake and Output Vital Signs (last 24 hours): Temp Pulse Resp BP Pulse Ox 98.3 F 72 18 124/78 100 08/01/18 07:30 08/01/18 07:30 08/01/18 07:30 08/01/18 07:30 08/01/18 07:30 Intake and Output: 08/01/18 08/01/18 06:59 18:59 Intake Total 1950 Balance 1950 - Labs Labs: 07/30/18 13:21 07/30/18 13:21 PT 10.7 SECONDS (9.7-12.2) 07/30/18 13:21 INR 1.0 07/30/18 13:21 APTT 29 SECONDS (21-34) 07/30/18 13:21 Assessment and Plan - Assessment and Plan (Free Text) Assessment: 53 year old female admitted with TIA, seen and examined with DR Rigoberto Winter. Alert and orientedx3, denies any sob, headaches or distress. Cleared by the neuro, plan to discharge home on aspirin and crestor . Advised to follow up with PMD in 1 week and neuro in 1-2 weeks as advised.
--- NOTE | 2018-08-01 22:53 | CP.PCM.DIS ---
Provider - Provider Date of Admission: 07/30/18 14:53 Attending physician: Elder Winter MD Consults: 07/30/18 17:22 Cardiology Consult Routine Comment: TIA Consulting Provider: Juan Saul Consulting Physician: Juan Saul Reason for Consult: TIA Neurology Consult Routine Comment: neurology consult Consulting Provider: Haven Weir Consulting Physician: Haven Weir Reason for Consult: TIA Time Spent in preparation of Discharge (in minutes): 20 Hospital Course - Lab Results Lab Results: Most Recent Lab Values WBC 6.3 K/uL (4.8-10.8) 07/30/18 13:21 RBC 4.43 Mil/uL (3.80-5.20) 07/30/18 13:21 Hgb 14.6 g/dL (11.0-16.0) 07/30/18 13:21 Hct 42.4 % (34.0-47.0) 07/30/18 13:21 MCV 95.5 fL (81.0-99.0) 07/30/18 13:21 MCH 32.9 pg (27.0-31.0) H 07/30/18 13:21 MCHC 34.4 g/dL (33.0-37.0) 07/30/18 13:21 RDW 13.9 % (11.5-14.5) 07/30/18 13:21 Plt Count 216 K/uL (130-400) 07/30/18 13:21 MPV 10.3 fL (7.2-11.7) 07/30/18 13:21 Neut % (Auto) 44.5 % (50.0-75.0) L 07/30/18 13:21 Lymph % (Auto) 41.5 % (20.0-40.0) H 07/30/18 13:21 [place] % (Auto) 11.9 % (0.0-10.0) H 07/30/18 13:21 Eos % (Auto) 1.4 % (0.0-4.0) 07/30/18 13:21 Baso % (Auto) 0.7 % (0.0-2.0) 07/30/18 13:21 Neut # (Auto) 2.8 K/uL (1.8-7.0) 07/30/18 13:21 Lymph # (Auto) 2.6 K/uL (1.0-4.3) 07/30/18 13:21 [place] # (Auto) 0.8 K/uL (0.0-0.8) 07/30/18 13:21 Eos # (Auto) 0.1 K/uL (0.0-0.7) 07/30/18 13:21 Baso # (Auto) 0.0 K/uL (0.0-0.2) 07/30/18 13:21 PT 10.7 SECONDS (9.7-12.2) 07/30/18 13:21 INR 1.0 07/30/18 13:21 APTT 29 SECONDS (21-34) 07/30/18 13:21 Sodium 136 mmol/L (132-148) 07/30/18 13:21 Potassium 3.6 mmol/L (3.6-5.2) 07/30/18 13:21 Chloride 99 mmol/L (98-107) 07/30/18 13:21 Carbon Dioxide 26 mmol/L (22-30) 07/30/18 13:21 Anion Gap 14 (10-20) 07/30/18 13:21 BUN 11 mg/dL (7-17) 07/30/18 13:21 Creatinine 1.0 mg/dL (0.7-1.2) 07/30/18 13:21 Est GFR ( Amer) > 60 07/30/18 13:21 Est GFR (Non-Af Amer) 58 07/30/18 13:21 POC Glucose (mg/dL) 110 mg/dL (65-110) 07/31/18 13:13 Random Glucose 96 mg/dL (65-105) 07/30/18 13:21 Hemoglobin A1c 5.3 % (4.2-6.5) 07/31/18 04:35 Calcium 9.7 mg/dl (8.6-10.4) 07/30/18 13:21 Total Bilirubin 1.0 mg/dL (0.2-1.3) 07/30/18 13:21 AST 43 U/L (14-36) H 07/30/18 13:21 ALT 20 U/L (9-52) 07/30/18 13:21 Alkaline Phosphatase 75 U/L (38-126) 07/30/18 13:21 Total Creatine Kinase 101 U/L (30-135) 07/31/18 14:00 CK-MB (Mass) 0.39 ng/mL (0.0-3.38) 07/31/18 14:00 Troponin I < 0.0120 ng/mL (0.00-0.120) 07/31/18 14:00 Total Protein 7.4 g/dL (6.3-8.3) 07/30/18 13:21 Albumin 4.6 g/dL (3.5-5.0) 07/30/18 13:21 Globulin 2.7 gm/dL (2.2-3.9) 07/30/18 13:21 Albumin/Globulin Ratio 1.7 (1.0-2.1) 07/30/18 13:21 Triglycerides 65 mg/dL (0-149) D 07/31/18 04:35 Cholesterol 145 mg/dL (0-199) 07/31/18 04:35 LDL Cholesterol Direct 63 mg/dL (0-129) 07/31/18 04:35 HDL Cholesterol 82 mg/dL (30-70) H 07/31/18 04:35 Vitamin B12 467 pg/mL (239-931) 07/31/18 04:35 Folate 8.1 ng/mL 07/31/18 04:35 TSH 3rd Generation 1.84 mIU/L (0.46-4.68) 07/31/18 04:35 Urine HCG, Qual Negative (NEGATIVE) 07/30/18 20:19 Urine Opiates Screen Negative (NEGATIVE) 07/30/18 20:19 Urine Methadone Screen Negative (NEGATIVE) 07/30/18 20:19 Ur Barbiturates Screen Negative (NEGATIVE) 07/30/18 20:19 Ur Phencyclidine Scrn Negative (NEGATIVE) 07/30/18 20:19 Ur Amphetamines Screen Negative (NEGATIVE) 07/30/18 20:19 U Benzodiazepines Scrn Negative (NEGATIVE) 07/30/18 20:19 U Oth Cocaine Metabols Negative (NEGATIVE) 07/30/18 20:19 U Cannabinoids Screen Positive (NEGATIVE) H 07/30/18 20:19 - Hospital Course Hospital Course: Patient was admitted for the syncope after passed out at place and then was next to her Patient underwent testing which is negative Keppra to be discontinued Patient is given off till Monday Patient will be seen in the office in the next 48hours Patient advised to take aspirin and patient advised to get the but further workup as an outpatient Discharge Exam - Head Exam Head Exam: ATRAUMATIC, NORMAL INSPECTION, NORMOCEPHALIC - Eye Exam Eye Exam: EOMI, Normal appearance, PERRL Pupil Exam: NORMAL ACCOMODATION, PERRL - ENT Exam ENT Exam: Normal Exam - Neck Exam Neck exam: Full Rom - Respiratory Exam Respiratory Exam: Decreased Breath Sounds - Cardiovascular Exam Cardiovascular Exam: REGULAR RHYTHM, +S1, +S2 - GI/Abdominal Exam GI & Abdominal Exam: Normal Bowel Sounds - Rectal Exam Rectal Exam: Deferred - Neurological Exam Neurological exam: Alert, CN II-XII Intact, Normal Gait, Oriented x3, Reflexes Normal Discharge Plan - Discharge Medications Prescriptions: Rosuvastatin Calcium 2.5 [Crestor] 5 mg PO HS #30 tab - Follow Up Plan Condition: STABLE Disposition: HOME/ ROUTINE Instructions: Heart Healthy Diet, Quitting Smoking for Older Adults, Smoking: Not Just Harmful to Your Lungs and Heart, Transient Ischemic Attack (DC), Seizures, Adult (DC), Rosuvastatin Additional Instructions: follow up with PMD in 1 week follow up with neurologists as advised Referrals: Andrew Ha MD [Staff Provider] - Bonnie Winter MD [Staff Provider] -
--- NOTE | 2018-08-02 01:24 | PN ---
DATE: 08/01/2018 SUBJECTIVE: The patient denies any speech difficulty, arm or leg weakness. No chest pain. PHYSICAL EXAMINATION: VITAL SIGNS: Blood pressure 124/78, heart rate 72, temperature 98.3, respirations 18. HEENT: Normocephalic. CHEST: Clear. HEART: S1 and S2, regular. EXTREMITIES: No edema. LABORATORY DATA: Echocardiographic study revealed normal left ventricular size and systolic function, 1 to 2 + TR with normal pulmonary systolic pressure. EEG was unremarkable. MRI, no acute findings. Head and neck CT angio, no significant lesion. ASSESSMENT: 1. Recurrent transient ischemic attack versus seizure activity. 2. Cannabinoid abuse. 3. Hypertension. RECOMMENDATIONS: Continue aspirin, Crestor, Keppra. No further cardiac workup is indicated at this time. Juan Saul MD
== END 2018-08-01 16:30 | disposition home or self-care (01) ==
LOC: C.ER 12:01 → C.9E 14:53 → C.6T 15:15
PROVIDERS: ADMIT Internal Medicine Nephrology; ATTEND Internal Medicine Nephrology
DX: G45.9 Transient cerebral ischemic attack, unspecified (principal); R56.9 Unspecified convulsions; I10 Essential (primary) hypertension; J45.909 Unspecified asthma, uncomplicated; F12.10 Cannabis abuse, uncomplicated; F17.210 Nicotine dependence, cigarettes, uncomplicated; Z82.0 Family history of epilepsy and other diseases of the nervous system
CPT/HCPCS: 36415; 70450; 70496; 70498; 70553; 71045; 80053; 80061; 80324; 80345; 80346; 80349; 80353; 80358; 80361; 82607; 82746; 82948; 83036; 83992; 84443; 84484; 84703; 85025; 85610; 85730; 93005; 93306; 95812; 97110; 97116; 97162; 97165; 97530; 99285; A9579; G0378; G8978; G8979; G8987; G8988; G8989; J7030; Q9967